=== PATIENT | male | born 1995 ===

== ENCOUNTER 2018-05-07 22:40 | Emergency (ER) | payer OTHER ==
[2018-05-07 23:10] VITALS: TEMP 98.4
[2018-05-08] MEDS ORDERED: LIDOCAINE 1% W/EPI MPF 30 ML SOL SC ONE (00:45)
[2018-05-08] MEDS ORDERED: LIDOCAINE 1% W/EPI MPF 30 ML SOL ONE (00:47)
[2018-05-08] MEDS ORDERED: CEPHALEXIN 250 MG/5 ML BOTTLE ONE (01:27)
[2018-05-08] MEDS ORDERED: IBUPROFEN 600 MG TAB PO ONE (01:27)
[2018-05-08] MEDS ORDERED: BACITRACIN 500 U/GM OIN TOP ONE ×2 (01:27)
[2018-05-08] MEDS ORDERED: IBUPROFEN 600 MG TAB ONE (01:27)
[2018-05-08] MEDS ORDERED: CEPHALEXIN 250 MG/5 ML BOTTLE PO ONE (01:27)
[2018-05-08 02:53] VITALS: BP 130/80; PULSE 78; RESP 78; O2SAT 99
== END 2018-05-08 01:49 | disposition home or self-care (01) ==
LOC: ED 22:40
DX: S01.81XA Laceration without foreign body of other part of head, initial encounter (principal); S00.31XA Abrasion of nose, initial encounter; S00.81XA Abrasion of other part of head, initial encounter; V29.40XA Motorcycle driver injured in collision with unspecified motor vehicles in traffic accident, initial encounter; S90.32XA Contusion of left foot, initial encounter; R40.2362 Coma scale, best motor response, obeys commands, at arrival to emergency department; R40.2142 Coma scale, eyes open, spontaneous, at arrival to emergency department; R40.2252 Coma scale, best verbal response, oriented, at arrival to emergency department
CPT/HCPCS: 70450; 71045; 72125; 73630; 99285; G0390; A9270-GY

== ENCOUNTER 2019-03-22 23:10 | Emergency (ER) | payer BC, OTHER ==
[2019-03-22 23:52] VITALS: BP 109/60; PULSE 57; RESP 16; O2SAT 98
== END 2019-03-22 23:46 | disposition home or self-care (01) ==
LOC: ED 23:10
DX: S01.511A Laceration without foreign body of lip, initial encounter (principal); W18.2XXA Fall in (into) shower or empty bathtub, initial encounter
CPT/HCPCS: 12011; 99283; G0168